=== PATIENT | female | born 1960 | race Caucasian/White ===

== ENCOUNTER 2023-02-27 11:55 | Outpatient (OUT) | payer OTHER, SELFPAY ==
--- NOTE | 2023-02-27 12:26 | XR_ITS ---
[address] [address] Patient Name: KALIN GARCIA MRN: [id number] date: 1960 Sex: F Assigned Patient Location: RAD Current Patient Location: [facility] Accession/Order Number: [id number] Exam Date: 02/27/2023 12:20 Report Date: 02/27/2023 12:37 At the request of: BEN DOWNEY Procedure: XR hip NOHEMI EXAMINATION: XR hip NOHEMI HISTORY: hip pain M25.559 COMPARISON: No relevant comparison available. FINDINGS: RIGHT FINDINGS: BONES: No acute fracture or dislocation. Mild degenerative changes with marginal osteophyte formation. SOFT TISSUES: Negative. No visible soft tissue swelling. OTHER: Tubal ligation clip. LEFT FINDINGS: BONES: No acute fracture or dislocation. Mild degenerative changes with marginal osteophyte formation. SOFT TISSUES: Negative. No visible soft tissue swelling. OTHER: Negative. XR/XR hip NOHEMI IMPRESSION: RIGHT CONCLUSION: Mild osteoarthritis LEFT CONCLUSION: Mild osteoarthritis Electronically authenticated by: RAIN NEIL Date: 02/27/2023 12:37
== END 2023-02-27 11:56 | disposition home or self-care (01) ==
LOC: RAD 12:00
PROVIDERS: PCP Family Medicine; Visit Provider Family Medicine
DX: M25.559 Pain in unspecified hip (principal)
CPT/HCPCS: 73522